=== PATIENT | male | born 1980 | race Two or more races ===

== ENCOUNTER 2017-11-15 19:07 | Emergency (ER) | payer BC ==
[~2017-11-15] VITALS: Ht 175.3 cm; Wt 86.4 kg
[2017-11-15 20:30] VITALS: BP 116/83
== END 2017-11-15 20:50 | disposition home or self-care (01) ==
LOC: EMS 19:09
DX: L05.91 Pilonidal cyst without abscess (principal); F17.210 Nicotine dependence, cigarettes, uncomplicated
CPT/HCPCS: 99283

== ENCOUNTER 2017-12-04 17:33 | Emergency (ER) | payer BC ==
[~2017-12-04] VITALS: Ht 175.3 cm; Wt 86.4 kg
[2017-12-04] MEDS ORDERED: HYDR-4061 PO (17:39)
[2017-12-04] MEDS ORDERED: SULF1TAB42 PO (17:39)
[2017-12-04 17:56] VITALS: BP 127/85
== END 2017-12-04 18:47 | disposition home or self-care (01) ==
LOC: EMS 17:34
DX: M54.5 Low back pain (principal); G89.29 Other chronic pain; F17.210 Nicotine dependence, cigarettes, uncomplicated; Z48.01 Encounter for change or removal of surgical wound dressing
CPT/HCPCS: 99281; 99283; 99406

== ENCOUNTER 2018-01-06 15:40 | Emergency (ER) | payer BC ==
[~2018-01-06] VITALS: Ht 175.3 cm; Wt 90.0 kg
[~2018-01-06 15:40] MED LIST: HYDR-4061 PO; SULF1TAB42 PO
[2018-01-06 16:54] VITALS: BP 123/70
== END 2018-01-06 17:11 | disposition home or self-care (01) ==
LOC: EMS 15:42
DX: S93.402A Sprain of unspecified ligament of left ankle, initial encounter (principal); F17.210 Nicotine dependence, cigarettes, uncomplicated; X58.XXXA Exposure to other specified factors, initial encounter; Y93.01 Activity, walking, marching and hiking; Y92.89 Other specified places as the place of occurrence of the external cause; Y99.0 Civilian activity done for income or pay
CPT/HCPCS: 99284

== ENCOUNTER 2018-02-05 15:55 | Emergency (ER) | payer BC ==
[~2018-02-05] VITALS: Ht 175.3 cm; Wt 90.9 kg
[2018-02-05 17:36] VITALS: BP 121/74
[2018-02-05] MEDS ORDERED: IBUPROFEN 800 MG TABLET PO ONE (17:45)
== END 2018-02-05 17:49 | disposition home or self-care (01) ==
LOC: EMS 15:55
DX: L02.31 Cutaneous abscess of buttock (principal); F17.210 Nicotine dependence, cigarettes, uncomplicated; Z87.81 Personal history of (healed) traumatic fracture
CPT/HCPCS: 99283